=== PATIENT | female | born 1975 | race Caucasian/White ===

== ENCOUNTER → 2021-03-02 15:08 | Outpatient (CLI) | payer OTHER, SELFPAY ==
--- NOTE | 2021-03-02 | DI.MG.S_ITS ---
BILATERAL DIGITAL SCREENING MAMMOGRAM 3D/2D WITH CAD: 03/02/2021 CLINICAL: Routine screening. Comparison is made to exams dated: 11/01/2015 mammogram and 08/06/2018 mammogram - [facility]. The tissue of both breasts is heterogeneously dense. This may lower the sensitivity of mammography. Current study was also evaluated with a Computer Aided Detection (CAD) system. No significant masses, calcifications, or other findings are seen in either breast. There has been no significant interval change. IMPRESSION: NEGATIVE There is no mammographic evidence of malignancy. A 1 year screening mammogram is recommended. This exam was interpreted at Station ID: [id number]. NOTE: For mammograms, a report in lay terms will be sent to the patient. Approximately 15% of breast malignancies will not be visualized mammographically. In the management of a palpable breast mass, a negative mammogram must not discourage biopsy of a clinically suspicious lesion. Electronically Signed By: Jono Mayorga M.D. at/tommy:03/04/2021 07:59:27 letter sent: Normal Exam ACR BI-RADS Category 1: Negative 3341F
== END ==
PROVIDERS: PCP Family Medicine; Referring Provider Family Medicine; Visit Provider Family Medicine
DX: Z12.31 Encounter for screening mammogram for malignant neoplasm of breast (principal)
CPT/HCPCS: 77063; 77067

== ENCOUNTER → 2022-02-11 19:07 | Outpatient (CLI) | payer OTHER, SELFPAY ==
--- NOTE | 2022-02-11 19:12 | DI.MRI.S_ITS ---
PROCEDURE: MR KNEE LT WO CON INDICATIONS: Unilateral primary osteoarthritis, left knee TECHNIQUE: Noncontrast sagittal PD fast spin echo and T2 fast spin echo with fat saturation, sagittal 3-D FLASH with fat saturation; coronal T1 spin echo and PD fast spin echo with fat saturation, and axial PD fast spin echo with fat saturation through the knee. COMPARISON: None. FINDINGS: Image quality: Excellent. Anterior Cruciate Ligament: Intact. Posterior Cruciate Ligament: Intact. Medial Collateral Ligament: Intact. Lateral Collateral Ligament: Intact. Medial Meniscus: There is extrusion of the medial meniscal body and anterior horn. The anterior horn appears irregular with increased signal intensity, which is suspicious for degeneration and chronic degenerative tearing. Lateral Meniscus: Mild free edge fibrillation of the body of the lateral meniscus without a discrete tear. Medial and Lateral Tendons: The semimembranosus tendon insertions and meniscocapsular junction appear intact. Visualized portions of the pes anserinus tendons appear normal. No abnormal bursal fluid. The long and short heads of the biceps femoris tendon appear intact. The popliteus tendon appears intact. No signs of posterolateral corner injury. Iliotibial band appears normal. Anterior Structures: The quadriceps and patellar tendons appear intact. No patellar subluxation. No femoral trochlear dysplasia or ventral trochlear prominence. No edema in the infrapatellar fat pad. Bones: No acute trabecular bone injury or fracture. Medial Femorotibial Cartilage: There is diffuse full-thickness cartilage loss throughout the weight-bearing portion of the medial femorotibial compartment with subchondral sclerosis, marginal osteophyte formation, and probable mild remodeling of the medial tibial plateau articular surface. Lateral Femorotibial Cartilage: Mild surface irregularity of the central weight-bearing portion of the lateral tibial plateau. Patellofemoral Cartilage: Mild partial-thickness cartilage irregularity of the trochlear groove. Soft Tissues: There is a small joint effusion with mild synovial hypertrophy. A small amount of fluid is seen tracking along the popliteus tendon sheath. Trace medial popliteal cyst. The musculature surrounding the knee is normal in bulk. There is hypertrophy of the subcutaneous adipose tissues. Mild nonspecific prepatellar subcutaneous soft tissue edema. Small varicose veins are noted in the medial subcutaneous tissues. IMPRESSION: 1. 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 Mild grade 2 chondromalacia is seen at the lateral and anterior compartments. 2. Extrusion of the body and anterior horn of the medial meniscus beyond the femorotibial joint line with superimposed chronic degenerative tearing of the anterior horn. 3. Mild free edge fibrillation of the body lateral meniscus without a discrete tear. 4. Small joint effusion. Small lateral popliteal cyst. Approved by: Malcom Arriaga M.D. on 02/12/2022 at 10:47
== END ==
PROVIDERS: PCP Family Medicine; Referring Provider Nurse Practitioner Family; Visit Provider Nurse Practitioner Family
DX: M23.212 Derangement of anterior horn of medial meniscus due to old tear or injury, left knee (principal); M17.12 Unilateral primary osteoarthritis, left knee; M94.262 Chondromalacia, left knee; M25.462 Effusion, left knee; M71.22 Synovial cyst of popliteal space [Baker], left knee
CPT/HCPCS: 73721

== ENCOUNTER 2022-09-05 06:50 | Day surgery (SDC) | payer OTHER, SELFPAY ==
--- NOTE | 2022-09-05 | PATH_ITS ---
[facility] Accession Number: [id number] No. of containers..03 Tissue . 01 Material submitted: . PART A: gastrointestinal site - GASTRIC ANTRUM BIOPSY PART B: esophagus, E-G Junction - GE JUNCTION BIOPSY PART C: esophagus - ESOPHAGUS BIOPSY . 01 Diagnosis: A. Gastric Antrum, Biopsy: Gastric mucosa with minimal chronic nonspecific inflammation. No Helicobacter pylori organisms identified on immunohistochemical evaluation. No intestinal metaplasia, dysplasia, or malignancy. . B. GE Junction, Biopsy: Proximal gastric glandular type mucosa with minimal chronic inflammation. No goblet cell metaplasia identified. No dysplasia or malignancy. . C. Esophagus, Biopsy: Esophageal squamous epithelium with rare intraepithelial eosinophil (up to 1 per high powered field). See comment. No fungal organisms identified on H/E slide. No dysplasia or malignancy. [facility] 09/15/2022 1158 Local . 01 Comment: C. The findings are compatible with reflux alterations. There is no evidence of eosinophilic esophagitis. . 01 Electronically signed: . Marya Tavarez MD, Pathologist NPI- [id number] . 01 Gross description: . The specimen is received in formalin in three parts, all labeled with the patient's name and . . A. Designated gastric antrum biopsy consists of two franco soft tissue fragments ranging from 0.1 to 0.4 cm in greatest dimension. Submitted entirely in cassette A1. B. Designated GE junction biopsy consists of a single franco soft tissue fragment measuring 0.2 cm in greatest dimension. Submitted entirely in cassette B1. C. Designated esophagus biopsy consists of a single franco soft tissue fragment measuring 0.4 cm in greatest dimension. Submitted entirely in cassette C1. ([id number]) /MRV 09/10/2022 1649 Local . 01 Microscopic: . A. An immunohistochemical stain was performed to evaluate for Helicobacter organisms and is negative. The control stain showed appropriate reactivity. . . * This test was developed and its performance characteristics determined by [employer]. It has not been cleared or approved by the U.S. Food and Drug Administration. The FDA has determined that such clearance or approval is not necessary. This test is used for clinical purposes. It should not be regarded as investigational or for research. . 01 Pathologist provided ICD-10: K29.30, K21.9, K21.00, Z12.11 . 01 CPT . 371834, 243557, 946808, [id number] Specimen Comment: A courtesy copy of this report has been sent to [facility] Performed at: 01 [facility] [address] [place] [address], [place], [place] [id number] MD Kedar Duron MD Phone: [phone]
[2022-09-05] MEDS: LACTATED RINGERS 1,000 ML 150 ML IV (07:33)
[2022-09-05 07:34] VITALS: BP 127/68; PULSE 72; RESP 16; TEMP 36.6; O2SAT 97; BMI 43.9
--- NOTE | 2022-09-05 07:46 | P.HP_ITS ---
History of Present Illness History of Present Illness Date Patient Seen: 09/05/22 Time Patient Seen: 07:46 Chief complaint: [facility] [place] Narrative: Ms. Martinez presents today for a screening colonoscopy and an EGD. She states that she has no family history of colon cancer no concerning symptoms such as bleeding from her bottom or changes in bowel habits. She says that the prep was difficult she had severe nausea with it and that she is still passing some flecks of brown this morning. She states that she originally was sent over because she is having terrible indigestion this has been going on for several months and she had been taking as many times as she could with no relief. In the past several weeks she started taking an antacid that is [id number] that starts with an E and is in a purple package. This does seem to be helping somewhat. She says that this sensation of indigestion is painful in her epigastric region and feels like reflux up into her esophagus. It can happen all day at any time of day. Sometimes it wakes her up at night. She notices that certain foods do aggravate the symptoms and she tries to stay away from chocolate coffee other things. After eating the sensation generally is immediate. She will wake up in the morning with a cough and gassiness in her mouth she also complains of bile in the throat she says this is taste and dark material she can not say if it is green or not. Overall the symptoms are extremely distressing to her and she would like to find out what is occurring and hopefully have it treated. PFSH Social History household members: spouse Smoking Status: Never smoker alcohol intake: current Meds Home Medications and Allergies Home Medications Medication Instructions Recorded Confirmed Type No Known Home Medications 09/05/22 09/05/22 History Allergies Allergy/AdvReac Type Severity Reaction Status Date / Time morphine AdvReac Severe Vomiting Verified 09/05/22 07:30 Exam Vital Signs (past 8 hours): - 09/05/22 07:34 Temperature 98 F Pulse Rate 72 Respiratory Rate 16 Blood Pressure 127/68 Pulse Oximetry 97 Oxygen Delivery Method Room Air Oxygen Delivery Method Room Air Const General: cooperative, healthy appearing and comfortable HENIA Head: normal to inspection Eyes General: appearance normal, both eyes and all related structures Resp Effort & Inspection: normal respiratory effort and able to speak in complete sentences Cardio Pulses: radial pulses present GI Inspection: obesity (BMI 44) Palpation: soft and No tender Skin General: no rashes or lesions noted Assessment & Plan Assessment and plan (1) Colon cancer screening: Status: Acute (2) Epigastric abdominal pain: Status: Acute (3) Acid reflux: Status: Acute Assessment & Plan narrative: Presents today for screening colonoscopy and diagnostic EGD, I discussed the risks benefits and alternatives including but not limited to perforation of the colon and an incomplete exam she fully understands these risks and would like to proceed.
[2022-09-05 08:40] VITALS: BP 129/56; PULSE 77; RESP 14; TEMP 36.3; O2SAT 99
[2022-09-05 08:45] VITALS: BP 120/53; PULSE 79; RESP 15; O2SAT 99
[2022-09-05 08:49] VITALS: BP 120/53; PULSE 77; RESP 14; O2SAT 100
[2022-09-05 08:50] VITALS: BP 117/69; PULSE 84; RESP 16; TEMP 36.2; O2SAT 100
--- NOTE | 2022-09-05 08:51 | PM.OP.EC ---
Operative Date/Time/Diagnoses Date of procedure: 09/05/22 Time of procedure: 08:51 Pre-op diagnosis: reflux, screening Post-op diagnosis: other (hiatal hernia, mild gastritis. ) Procedure Notes Procedure in detail: Patient was taken to the endoscopy suite placed supine on the gurney. A time-out was performed. With the help of anesthesiologist conscious sedation was induced and monitored throughout the case. A bite block was placed and the EGD was commenced. There was an initial attempt to place the scope into the but there was desaturation which required stopping initially and starting again a 2nd time. The 2nd attempt the scope went easily through into the esophagus and was advanced into the stomach. There was evidence of a hiatal hernia going in. A photograph of the stomach was taken as well as biopsies of antrum where there was gastritis. The scope was advanced past the pylorus into the duodenum. A photograph was taken and it appeared normal. The scope was then withdrawn back into the stomach and retroflexed. Several photographs of the hiatal hernia were obtained. The scope was then withdrawn further into the esophagus and biopsies were taken of the GE junction. The GE junction was 35 cm at the incisors. Additional biopsies of the distal esophagus were taken. The patient was then positioned in a left lateral decubitus position and the colonoscopy was begun. A digital rectal exam was performed there were no masses or strictures. The colonoscope was placed into the anal canal and advanced through to the cecum. A photograph of the appendiceal orifice was obtained. Prep was good [place] bowel prep score of 2. The scope was then withdrawn for a total of 12 minutes with careful examination of all of the mucosa. No polyps were seen. There were just a few scattered diverticula in the sigmoid colon. The scope was then retroflexed and a photograph of hemorrhoidal piles was obtained which appeared normal. Patient tolerated the procedure well and went good condition to the postoperative care unit. Findings: gastritis and hiatal hernia Specimen(s): other (1. Gastric antrum 2. GE junction 3. Esophagus) Complications: none Post-procedure Recommendations: Colonscopy in 10 years Plan for aftercare: So long as no symptoms nor any family members develop colon cancer 10 year follow-up for colonoscopy.
== END 2022-09-05 09:05 | disposition home or self-care (01) ==
PROVIDERS: PCP Family Medicine; Referring Provider Surgery; Visit Provider Surgery
PROC: 0DJ08ZZ Inspection of Upper Intestinal Tract, Via Natural or Artificial Opening Endoscopic (ICD-10-PCS; CPT 43235; principal; 2022-09-05 07:45)
PROC: 0DJD8ZZ Inspection of Lower Intestinal Tract, Via Natural or Artificial Opening Endoscopic (ICD-10-PCS; CPT 45378; 2022-09-05 07:45)
DX: Z12.11 Encounter for screening for malignant neoplasm of colon (principal); K21.9 Gastro-esophageal reflux disease without esophagitis; K44.9 Diaphragmatic hernia without obstruction or gangrene; K29.50 Unspecified chronic gastritis without bleeding; K20.80 Other esophagitis without bleeding
CPT/HCPCS: 45378; 43239; J2704

== ENCOUNTER → 2023-11-12 17:13 | Outpatient (CLI) | payer OTHER, SELFPAY ==
--- NOTE | 2023-11-12 17:14 | DI.MG.S_ITS ---
BILATERAL DIGITAL SCREENING MAMMOGRAM 3D/2D WITH CAD: 11/12/2023 CLINICAL: Routine screening. Comparison is made to exams dated: 08/06/2018 mammogram - [facility], 03/02/2021 mammogram - [facility], and 11/01/2015 mammogram - [facility]. Both breasts are heterogeneously dense, which may obscure small masses (category c / 51-75% glandular tissue). Current study was also evaluated with a Computer Aided Detection (CAD) system. No significant masses, calcifications, or other findings are seen in either breast. There has been no significant interval change. IMPRESSION: NEGATIVE There is no mammographic evidence of malignancy. A 1 year screening mammogram is recommended. Based on the Tyrer Cuzick model (a risk assessment model) the patient's lifetime risk is 7.9% and her 10 year risk is 1.8%. According to the ACR, ACS, and NCCN guidelines, an annual breast MRI exam along with mammogram is recommended if the patient's lifetime risk is 20% or greater. This exam was interpreted at Station ID: [id number]. NOTE: For mammograms, a report in lay terms will be sent to the patient. Approximately 15% of breast malignancies will not be visualized mammographically. In the management of a palpable breast mass, a negative mammogram must not discourage biopsy of a clinically suspicious lesion. Electronically Signed By: Jono benavides/tommy:11/13/2023 07:44:42 letter sent: Normal Exam ACR BI-RADS Category 1: Negative 3341F
== END ==
PROVIDERS: PCP Family Medicine; Referring Provider Registered Nurse; Visit Provider Registered Nurse
DX: Z12.31 Encounter for screening mammogram for malignant neoplasm of breast (principal); R92.333 Mammographic heterogeneous density, bilateral breasts
CPT/HCPCS: 77063; 77067